=== PATIENT | male | born 1940 | race Caucasian/White ===

== ENCOUNTER 2022-11-19 07:09 | Outpatient (CLI) | payer OTHER, SELFPAY ==
--- NOTE | 2022-11-19 | US_ITS ---
WS: [id number] RENAL ULTRASOUND HISTORY: CKD STAGE 3 COMPARISON: None available. TECHNIQUE: 2-D and color Doppler imaging of the kidney submitted. Right kidney: 9.1 cm x 3.5 cm x 5.5 cm. Cortex: 1.0 cm Low normal size kidney. There is mild diffuse cortical thinning with increased echogenicity throughou t the kidney. No mass or obstruction. Left kidney: 9.4 cm x 4.4 cm x 4.5 cm. Cortex: 1.0 cm Low normal size kidney with increased echogenicity. Mild diffuse cortical thinning. No obstruction or solid mass. Aorta: Mild atherosclerosis. Urinary Bladder: Normal distention. IMPRESSION: 1. No renal obstruction or solid mass. 2. Low normal size kidneys with cortical thinning and changes of chronic medical renal disease.
== END 2022-11-19 07:10 | disposition home or self-care (01) ==
PROVIDERS: PCP Family Medicine; Visit Provider Internal Medicine
DX: N18.32 Chronic kidney disease, stage 3b (principal)
CPT/HCPCS: 76770

== ENCOUNTER 2023-01-04 12:52 | Observation (INO) | payer OTHER, SELFPAY ==
[2023-01-04] VITALS (11 sets, daily range): BP systolic 113–132; BP diastolic 58–76; PULSE 85–127; RESP 15–29; TEMP 36.2–36.7; O2SAT 95–100; BMI 24.4
--- NOTE | 2023-01-04 13:12 | XR_ITS ---
WS: [id number] EXAMINATION: XR chest 1V portable [id number] REASON FOR EXAM: dyspnea/cough COMPARISON: None available. ORDER DATE: 01/04/2023 1:21 PM TECHNIQUE: A single, portable frontal chest x-ray was obtained. There is peripheral consolidative infiltrates with possibly some loculated effusion opacifying the ri ght lung base. Cannot rule out the possibility of a 10 mm nodule located immediately cephalad to the consolidation. Cardiomediastinal silhouette unremarkable except for atherosclerotic aortic change. No evidence for pulmonary edema. Soft tissue and osseous structures are unremarkable. No tubes or lines are present. IMPRESSION: Right basal consolidation possibly loculated effusion Possible 10 mm nodule above the consolidation, recommend close interval follow-up and if the nodule p ersists after the infiltrate is resolving recommend CT imaging of the chest
--- NOTE | 2023-01-04 13:12 | ECG_ITS ---
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 Measurements Intervals [place] Rate: 108 P: 0 UT: 0 QRS: -37 QRSD: 111 T: 114 QT: 343 QTc: 460 Interpretive Statements ATRIAL FIBRILLATION WITH RAPID VENTRICULAR RESPONSE LEFT AXIS DEVIATION [QRS AXIS < -30] INCOMPLETE RIGHT BUNDLE BRANCH BLOCK [90+ ms QRS DURATION, TERMINAL R IN V1/V2, 40+ ms S IN I/aVL/V4/V5/V6] SEPTAL MYOCARDIAL INFARCTION , PROBABLY OLD [40+ ms Q WAVE IN V1/V2] No previous ECG available for comparison Electronically Signed On 01-04-2023 15:10:09 CDT by Gume Viera M.D. [id number]
--- NOTE | 2023-01-04 13:17 | W.ED.WEAKNES ---
HPI - Weakness General: Chief complaint: Weakness Stated complaint: WEAKNESS Time Seen by Provider: 01/04/23 13:11 Source: patient Mode of arrival: ambulatory History of Present Illness: 82-year-old Time performed and obtained. Male presents to the emergency room with weakness for the last 3 weeks progressively worse this week. He patient presents in A-fib when I asked him and his family they had not no knowledge of what atrial fibrillation was has not previously been diagnosed with atrial fibrillation he is not on any anticoagulations. He has been short of breath. No fevers sweats or chills. He is not taking any medications for rate control. No chest pain. MD Complaint: generalized weakness Onset (ago): week(s) Duration: constant and progressively worsening Severity: moderate Relieving factors: none Exacerbating factors: none Associated symptoms: Denies chest pain, chills, confusion, melena, decreased appetite, diaphoresis, dysuria, easy bruising, fever(s), headache(s), myalgias, nausea, rash, short of breath, syncope or vomiting Review of Systems Const: Denies: fever(s), chills or diaphoresis ENMT: Denies: throat pain, ear or mastoid pain, nasal discharge or nasal congestion Card: Reports: palpitations and irregular heart rhythm; Denies: chest pain, edema, lightheadedness or syncope Resp: Denies: dyspnea, productive cough or non-productive cough GI: Denies: abdominal pain, nausea, vomiting or melena : Denies: dysuria, urinary frequency or urinary urgency Skin/Breast: Denies: rash or pruritus Neuro: Denies: headache(s) or confusion Willi/Lymph: Denies: easy bruising Physical Exam Const: GENERAL APPEARANCE: cooperative and comfortable ORIENTATION/CONSCIOUSNESS: Yes awake, Yes oriented to person, Yes oriented to place and Yes oriented to time HENMT: COMMON NORMALS: normocephalic, atraumatic and hearing grossly normal bilaterally HEAD & SCALP: normocephalic and atraumatic Resp: AUSCULTATION: crackles and diminished lung sounds (Right base) Cardio: RHYTHM: abnormal rhythm irregularly irregular GI: COMMON NORMALS: Soft to palpation and No hepatosplenomegaly present AUSCULTATION: Yes normoactive bowel sounds PALPATION: Yes Soft to palpation, No Tenderness to palpation present (GI), No Guarding due to palpation present (GI) and Yes No hepatosplenomegaly present Extremity: COMMON NORMALS: normal to inspection, capillary refill normal, no clubbing, cyanosis or edema, no calf tenderness and no pedal edema Neuro: SENSORIUM/ORIENTATION: Yes oriented to person, Yes oriented to place and Yes oriented to time Skin: COMMON NORMALS: no rashes or lesions noted GENERAL SKIN EXAM: no rashes or lesions noted Course Vital Signs: Vital signs: Vital Signs Temperature 97.8 F 01/04/23 12:54 Pulse Rate 95 01/04/23 15:43 Respiratory Rate 16 01/04/23 15:43 Blood Pressure 129/76 01/04/23 15:43 Pulse Oximetry 98 01/04/23 15:43 Oxygen Delivery Me thod Room Air 01/04/23 15:43 MDM - Weakness Medical Decision Making Atrial fibrillation with a large right pleural effusion White count is normal concerning because of his loculation length of time he is on it that this may be secondary to neoplasm is no sign of PE. Discussed Dr. Noble we are not starting antibiotics at this point did not believe is infectious for evaluation for the pleural effusion and establishing rate control. We will HAVE to work through something as far as anticoagulation goes. Medical Records I reviewed the patient's medical records. Lab Data I reviewed the patient's lab results. 01/04/23 13:28 01/04/23 13:28 Laboratory Results WBC 3.62 10^3/uL (3.29-11.43) 01/04/23 13:28 RBC 4.04 10^6/uL (3.85-5.65) 01/04/23 13:28 Hgb 10.00 g/dL (11.27-16.99) L 01/04/23 13:28 Hct 32.2 % (37-53) L 01/04/23 13:28 MCV 79.7 fl (82-101) L 01/04/23 13:28 MCH 24.8 pg (27-33) L 01/04/23 13:28 MCHC 31.1 g/dL (30-55) 01/04/23 13:28 RDW 16.3 % (12.1-15.1) H 01/04/23 13:28 Plt Count 444 10^3/cmm (157-399) H 01/04/23 13:28 MPV 8.9 fL (7.4-10.4) 01/04/23 13:28 Neut % (Auto) 42.6 % 01/04/23 13:28 Lymph % (Auto) 22.7 % 01/04/23 13:28 [place] % (Auto) 18.2 % 01/04/23 13:28 Eos % (Auto) 9.9 % 01/04/23 13:28 Baso % (Auto) 1.1 % 01/04/23 13:28 Neut # (Auto) 1.54 10^3/uL (1.8-7.7) L 01/04/23 13:28 Lymph # (Auto) 0.8 10^3/uL (0.8-4.8) 01/04/23 13:28 [place] # (Auto) 0.7 10^3/uL (0.2-0.9) 01/04/23 13:28 Eos # (Auto) 0.4 10^3/uL (0.0-0.8) 01/04/23 13:28 Baso # (Auto) 0.0 10^3/uL (0.0-0.1) 01/04/23 13:28 Nucleated RBC % (auto) 0 % 01/04/23 13:28 Nucleated RBCs # 0.0 /100WBC 01/04/23 13:28 Sodium 136 mmol/L (136-145) 01/04/23 13:28 Potassium 5.0 mmol/L (3.5-5.1) 01/04/23 13:28 Chloride 103 mmol/L (98-107) 01/04/23 13:28 Carbon Dioxide 25 mmol/L (22-29) 01/04/23 13:28 Anion Gap 13.0 (5-19) 01/04/23 13:28 BUN 19 mg/dL (8-23) 01/04/23 13:28 Creatinine 1.2 mg/dL (0.7-1.2) 01/04/23 13:28 GFR Calculation Not Reportable 01/04/23 13:28 Glucose 130 mg/dL (65-115) H 01/04/23 13:28 Calculated Osmolality 286 mOsm/kg (285-295) 01/04/23 13:28 Calcium 8.4 mg/dL (8.5-10.5) L 01/04/23 13:28 Total Bilirubin 0.7 mg/dL (0.15-1.2) 01/04/23 13:28 AST 23 U/L (0-40) 01/04/23 13:28 ALT 10 U/L (0-41) 01/04/23 13:28 Alkaline Phosphatase 60 U/L (40-130) 01/04/23 13:28 Total Protein 6.9 g/dL (6.6-8.7) 01/04/23 13:28 Albumin 2.8 g/dL (3.5-5.2) L 01/04/23 13:28 Globulin 4.1 g/dL (1.3-4.6) 01/04/23 13:28 Urine Color Dark yellow (Yellow) 01/04/23 14:30 Urine Appearance Clear (CLEAR) 01/04/23 14:30 Urine pH 5 (5-7) 01/04/23 14:30 Ur Specific [place] 1.020 (1.005-1.030) 01/04/23 14:30 Urine Protein 1+ (Negative) H 01/04/23 14:30 Urine Glucose (UA) Norm (Normal) 01/04/23 14:30 Urine Ketones Negative (Negative) 01/04/23 14:30 Urine Blood Neg (Negative) 01/04/23 14:30 Urine Nitrate Negative (Negative) 01/04/23 14:30 Urine Bilirubin 1+ (Negative) H 01/04/23 14:30 Urine Urobilinogen 4 mg/dL (Negative) H 01/04/23 14:30 Ur Leukocyte Esterase Negative (Negative) 01/04/23 14:30 Urine RBC 0-4 /hpf (0-2) H 01/04/23 14:30 Urine WBC 0-4 /hpf (0-5) H 01/04/23 14:30 Ur Squamous Epith Cells 0-4 /hpf (0-5) H 01/04/23 14:30 Amorphous Sediment Not Reportable 01/04/23 14:30 Urine Bacteria 2+ /hpf (NONE) H 01/04/23 14:30 Urine Mucus Trace /hpf 01/04/23 14:30 All radiology interpretation(s) finalized by discharge Discharge Plan Discharge Patient Disposition: Placed in Observation Clinical Impression: Atrial fibrillation, new onset, Pleural effusion on right Coding Level of Care Code ED Copper Plate Lithographer for Megha Shah
[2023-01-04 13:39] LABS: Basophils % 1.1 %; Eosinophils # 0.4 10^3/uL (0.0-0.8); Eosinophils % 9.9 %; Hematocrit 32.2 % (37-53); Lymphocytes # 0.8 10^3/uL (0.8-4.8); Lymphocytes % 22.7 %; Mean Corpuscular HGB Conc 31.1 g/dL (30-55); Mean Corpuscular Hemoglobin 24.8 pg (27-33); Mean Corpuscular Volume 79.7 fl (82-101); Mean Platelet Volume 8.9 fL (7.4-10.4); Monocytes # 0.7 10^3/uL (0.2-0.9); Monocytes % 18.2 %; Neutrophils # 1.54 10^3/uL (1.8-7.7); Neutrophils % 42.6 %; Nucleated Red Blood Cells % 0 %; Platelet Count 444 10^3/cmm (157-399); Red Blood Count 4.04 10^6/uL (3.85-5.65); Red Cell Distribution Width 16.3 % (12.1-15.1); White Blood Count 3.62 10^3/uL (3.29-11.43)
--- NOTE | 2023-01-04 13:47 | PC.PHAR ---
pt states he lives alone and doesnt take any rx medications-pt states the fl sends him no medications-pt states he takes otc vitamins but is unsure of the names of the vitamins-pt states he takes a 81mg aspirin prn when he has pains
[2023-01-04 13:56] LABS: Alanine Aminotransferase 10 U/L (0-41); Albumin Level 2.8 g/dL (3.5-5.2); Alkaline Phosphatase 60 U/L (40-130); Aspartate Amino Transferase 23 U/L (0-40); Blood Urea Nitrogen 19 mg/dL (8-23); Calcium 8.4 mg/dL (8.5-10.5); Carbon Dioxide 25 mmol/L (22-29); Chloride 103 mmol/L (98-107); Globulin 4.1 g/dL (1.3-4.6); Glucose 130 mg/dL (65-115); Osmolality Calculated 286 mOsm/kg (285-295); Sodium 136 mmol/L (136-145); Total Bilirubin 0.7 mg/dL (0.15-1.2); Total Protein 6.9 g/dL (6.6-8.7)
[2023-01-04 14:17] LABS: Slide Review Slide Review Perform
--- NOTE | 2023-01-04 14:55 | CT_ITS ---
WS: [id number] CTA OF THE CHEST WITH PULMONARY EMBOLISM PROTOCOL TECHNIQUE: High-resolution contrast enhanced CTA of the chest with coronal and sagittal reformatted i carlos with pulmonary embolism protocol. MIP images are also reviewed. CLINICAL INFORMATION: tachy cardia/dyspnea, R pleurel efusion COMPARISON: None. DLP: 320.[address] scans at [facility] use at least one of these dose optimization techniques: automated e xposure control; mA and/or kV adjustment per patient size (includes targeted exams where dose is matc hed to clinical indication); or iterative reconstruction. FINDINGS: Proximal main pulmonary arteries are normal. Normal segmental and subsegmental pulmonary arteries. No evidence of pulmonary embolus. Bronchovascular thickening along the RIGHT hilum with traction bronchiectasis. Parenchymal scarring i n the RIGHT lower lobe. and/or soft tissue thickening Diffuse loculated pleural fluid throughout the RIGHT lung worse in the RIGHT lower lobe with compressive atelectasis. This extends along the RIGHT upper lobe and mediastinal surfaces. Subsegmental atelectasis RIGHT lower lobe. Traction bronchiectas is RIGHT hilum. Differential considerations include infectious, inflammatory, or neoplastic etiologie s including pleural metastasis, mesothelioma, and lymphoma. LEFT lung is well aerated. Parenchymal scarring LEFT lung apex. No LEFT pleural fluid. Cholecystectomy clips. Adrenal glands are normal. Normal GE junction. Aneurysmal ascending thoracic a veronica measuring 4.6 cm. Normal caliber descending thoracic aorta. Elevation RIGHT hemidiaphragm with v olume loss RIGHT lung. Small amount of perihepatic fluid. Chronic anterior wedging in the midthoracic spine with endplate Schmorl's nodes. IMPRESSION: 1. Diffuse loculated pleural fluid and/or soft tissue thickening involving the RIGHT pleura more pro minent in the RIGHT lower lobe, RIGHT upper lobe laterally and extending along the mediastinal surfac es. Pleural Parenchymal scarring in the RIGHT lower lobe with traction bronchiectasis along the RIGH T hilum. 2. Differential considerations are broad including infectious, inflammatory, or neoplastic etiologie s including pleural metastasis, mesothelioma, and lymphoma. 3. LEFT lung is well aerated. 4. Aneurysmal ascending thoracic aorta measuring 4.6 cm. 5. No evidence of pulmonary embolus.
[2023-01-04 15:08] LABS: Urine Appearance Clear (CLEAR); Urine Color Dark Yellow (Yellow)
[2023-01-04 15:09] LABS: Add Urine Culture? No; Add Urine Microscopic? YES; Bacteria Urine 2+ /hpf; Bilirubin Urine 1+ (Negative); Blood Urine Neg (Negative); Glucose Urine UA Norm (Normal); Ketones Urine Negative (Negative); Leukocyte Esterase Urine Negative (Negative); Mucus Urine TRACE /hpf; Nitrate Urine Negative (Negative); Protein Urine 1+ (Negative); RBC Urine 0-4 /hpf (0-2); Squamous Epithelial Cell Urine 0-4 /hpf (0-5); Urobilinogen Urine 4 mg/dL (Negative); WBC Urine 0-4 /hpf (0-5); pH Urine 5 (5-7)
--- NOTE | 2023-01-04 17:56 | PM.HP ---
Providers/Chief Complaint Admitting Physician: Hector Flanagan MD Primary Care Provider: Olu Rios Jr, MD Chief Complaint: WEAKNESS History of Present Illness Alexx Barron is a 82 year old male with no segment past medical, resident of assisted living was brought in by EMS today because of generalized weakness which has been getting worse for last 3 to 4 days along with persistent cough. In the ER he was found to have atrial fibrillation and right-sided pleural effusion hence medical team was consulted for further evaluation. Examination patient laying comfortably in bed, AO x1-2, slightly confused which as per his sister is usual for him, states he walks around at home with a walker and usually takes care of his ADLs but has been having more cough and weakness for last few days. He denies any chest pain, palpitation, nausea, vomiting, subjective fever fever, diarrhea, dysuria, loss of weight. Review of Systems General: Reports: 10 or more systems reviewed and unremarkable except in HPI and below Const: Denies: fever(s), chills, body aches, change in appetite, change in weight, malaise, night sweats, diaphoresis, change in sleep pattern, daytime sleepiness or snoring Eyes: Denies: change in vision, blurry vision, photophobia, eye discomfort or eye discharge ENMT: Denies: throat pain, enlarged tonsils, hoarseness, mouth pain, oral sores, dry mouth, tinnitus, nasal congestion or post nasal drip Card: Denies: chest pain, palpitations, irregular heart rhythm, edema, swelling of feet/ankles, lightheadedness, syncope, pre-syncope, dyspnea on exertion, orthopnea, leg pain with exertion or acrocyanosis Resp: Denies: dyspnea, productive cough, non-productive cough, wheezing, stridor, pain on inspiration, change in phlegm color, hemoptysis or chest congestion GI: Denies: abdominal pain, nausea, vomiting, hematemesis, coffee ground emesis, dysphagia, heartburn, diarrhea, constipation, bloating, GI cramping, change in bowel habits, pain on defecation, hematochezia or melena : Denies: flank pain, difficulty urinating, dysuria, urinary frequency, urinary urgency, urinary hesitancy, urinary dribbling, difficulty starting urination, change in urine stream, nocturia or hematuria Musc: Denies: neck pain, back pain, extremity pain, joint pain, joint swelling, joint redness, joint stiffness or limited range of motion Neuro: Denies: headache(s), numbness in extremities, weakness in extremities, sensory changes, lack of coordination, difficulty walking, frequent falls, dizziness, vertigo, confusion, Slurred speech present, difficulty communicating thoughts or seizure-like activity Psych: Denies: anxiety, depression, mood swings, panic attacks, hopelessness or irritability Endo: Denies: polyuria, polydipsia, tired all the time, cold intolerance, excessive sweating, flushing or heat intolerance Willi/Lymph: Denies: easy bruising or easy bleeding All/Imm: Denies: tongue swelling, facial swelling or acute wheezing Medications/Allergies Home Medications Medication Instructions Recorded Confirmed Last Taken Type Otc Vits (Pt Not Sure Of Names See Rx Instructions .Route .COMPLEX 01/04/23 01/04/23 Unknown History aspirin 81 mg tablet,delayed 81 mg PO DAILY PRN chest pains 01/04/23 01/04/23 3 Days Ago History release ~01/01/23 Allergies Allergy/AdvReac Type Severity Reaction Status Date / Time No Known Allergies Allergy Verified 01/04/23 13:44 PFSH Acute PFSH: Medical History (Updated 01/04/23 @ 18:08 by Hector Flanagan MD) No pertinent past medical history Surgical History (Updated 01/04/23 @ 18:08 by Hector Flanagan MD) No pertinent past surgical history Social History (Updated 01/04/23 @ 18:09 by Hector Flanagan MD) Smoking and tobacco status: former smoker Alcohol intake: never Substance/Drug Use: never Caregiver/support person: Yes Housing: Assisted Living Facility Marital status: Current occupational status: retired Vitals/I&O/Wt Last Vital Signs Temp 97.8 F 01/04/23 12:54 Pulse 104 H 01/04/23 17:44 Resp 15 01/04/23 17:44 BP 126/74 01/04/23 17:44 Pulse Ox 100 01/04/23 17:44 O2 Del Method Room Air 01/04/23 17:44 Weight last 48 hrs Weight 81.647 kg Physical Exam Narrative: General: No acute distress, AO x1-2, confusion, dehydrated, frail appearing HEENT: PERRLA, pupils bilaterally equal and reactive Chest: Normal vesicular breath sounds, no added sounds, equal good air entry bilaterally CVS: S1-S2 ir, no murmurs, no tachycardia, no gallops, no rubs Abdomen: Soft, nontender, no organomegaly, bowel sounds present Neuro: No focal deficits, no facial deformity, power 5/5 in all limbs Data 01/04/23 13:28 01/04/23 13:28 Other Labs: Laboratory Results WBC 3.62 10^3/uL (3.29-11.43) 01/04/23 13: RBC 4.04 10^6/uL (3.85-5.65) 01/04/23 13:28 Hgb 10.00 g/dL (11.27-16.99) L 01/04/23 13:28 Hct 32.2 % (37-53) L 01/04/23 13:28 MCV 79.7 fl (82-101) L 01/04/23 13:28 MCH 24.8 pg (27-33) L 01/04/23 13:28 MCHC 31.1 g/dL (30-55) 01/04/23 13:28 RDW 16.3 % (12.1-15.1) H 01/04/23 13:28 Plt Count 444 10^3/cmm (157-399) H 01/04/23 13:28 MPV 8.9 fL (7.4-10.4) 01/04/23 13:28 Neut % (Auto) 42.6 % 01/04/23 13:28 Lymph % (Auto) 22.7 % 01/04/23 13:28 [place] % (Auto) 18.2 % 01/04/23 13:28 Eos % (Auto) 9.9 % 01/04/23 13:28 Baso % (Auto) 1.1 % 01/04/23 13:28 Neut # (Auto) 1.54 10^3/uL (1.8-7.7) L 01/04/23 13:28 Lymph # (Auto) 0.8 10^3/uL (0.8-4.8) 01/04/23 13:28 [place] # (Auto) 0.7 10^3/uL (0.2-0.9) 01/04/23 13:28 Eos # (Auto) 0.4 10^3/uL (0.0-0.8) 01/04/23 13:28 Baso # (Auto) 0.0 10^3/uL (0.0-0.1) 01/04/23 13:28 Nucleated RBC % (auto) 0 % 01/04/23 13:28 Nucleated RBCs # 0.0 /100WBC 01/04/23 13:28 Sodium 136 mmol/L (136-145) 01/04/23 13:28 Potassium 5.0 mmol/L (3.5-5.1) 01/04/23 13:28 Chloride 103 mmol/L (98-107) 01/04/23 13:28 Carbon Dioxide 25 mmol/L (22-29) 01/04/23 13:28 Anion Gap 13.0 (5-19) 01/04/23 13:28 BUN 19 mg/dL (8-23) 01/04/23 13:28 Creatinine 1.2 mg/dL (0.7-1.2) 01/04/23 13:28 GFR Calculation Not Reportable 01/04/23 13:28 Glucose 130 mg/dL (65-115) H 01/04/23 13:28 Calculated Osmolality 286 mOsm/kg (285-295) 01/04/23 13:28 Calcium 8.4 mg/dL (8.5-10.5) L 01/04/23 13:28 Total Bilirubin 0.7 mg/dL (0.15-1.2) 01/04/23 13:28 AST 23 U/L (0-40) 01/04/23 13:28 ALT 10 U/L (0-41) 01/04/23 13:28 Alkaline Phosphatase 60 U/L (40-130) 01/04/23 13:28 Total Protein 6.9 g/dL (6.6-8.7) 01/04/23 13:28 Albumin 2.8 g/dL (3.5-5.2) L 01/04/23 13:28 Globulin 4.1 g/dL (1.3-4.6) 01/04/23 13:28 Urine Color Dark yellow (Yellow) 01/04/23 14:30 Urine Appearance Clear (CLEAR) 01/04/23 14:30 Urine pH 5 (5-7) 01/04/23 14:30 Ur Specific [place] 1.020 (1.005-1.030) 01/04/23 14:30 Urine Protein 1+ (Negative) H 01/04/23 14:30 Urine Glucose (UA) Norm (Normal) 01/04/23 14:30 Urine Ketones Negative (Negative) 01/04/23 14:30 Urine Blood Neg (Negative) 01/04/23 14: Urine Nitrate Negative (Negative) 01/04/23 14:30 Urine Bilirubin 1+ (Negative) H 01/04/23 14:30 Urine Urobilinogen 4 mg/dL (Negative) H 01/04/23 14:30 Ur Leukocyte Esterase Negative (Negative) 01/04/23 14:30 Urine RBC 0-4 /hpf (0-2) H 01/04/23 14:30 Urine WBC 0-4 /hpf (0-5) H 01/04/23 14:30 Ur Squamous Epith Cells 0-4 /hpf (0-5) H 01/04/23 14:30 Amorphous Sediment Not Reportable 01/04/23 14:30 Urine Bacteria 2+ /hpf (NONE) H 01/04/23 14:30 Urine Mucus Trace /hpf 01/04/23 14:30 Micro: Microbiology 01/04/23 13:49 Blood Culture - Preliminary Blood SPECIMEN COLLECTED 01/04/23 13:53 Blood Culture - Preliminary Blood SPECIMEN COLLECTED CTA Chest: Radiologist's impression: [facility] [address] [place] [address] CT Scan Report FINDINGS: Proximal main pulmonary arteries are normal. Normal segmental and subsegmental pulmonary arteries. No evidence of pulmonary embolus. Bronchovascular thickening along the RIGHT hilum with traction bronchiectasis. Parenchymal scarring in the RIGHT lower lobe.? and/or soft tissue thickening Diffuse loculated pleural fluid throughout the RIGHT lung worse in the RIGHT lower lobe with compressive atelectasis. This extends along the RIGHT upper lobe and mediastinal surfaces. Subsegmental atelectasis RIGHT lower lobe. Traction bronchiectasis RIGHT hilum. Differential considerations include infectious, inflammatory, or neoplastic etiologies including pleural metastasis, mesothelioma, and lymphoma. LEFT lung is well aerated. Parenchymal scarring LEFT lung apex. No LEFT pleural fluid. Cholecystectomy clips. Adrenal glands are normal. Normal GE junction. Aneurysmal ascending thoracic aorta measuring 4.6 cm. Normal caliber descending thoracic aorta. Elevation RIGHT hemidiaphragm with volume loss RIGHT lung. Small amount of perihepatic fluid. Chronic anterior wedging in the midthoracic spine with endplate Schmorl's nodes. IMPRESSION: 1.? Diffuse loculated pleural fluid and/or soft tissue thickening involving the RIGHT pleura more prominent in the RIGHT lower lobe, RIGHT upper lobe laterally and extending along the mediastinal surfaces. Pleural? Parenchymal scarring in the RIGHT lower lobe with traction bronchiectasis along the RIGHT hilum. 2.? Differential considerations are broad including infectious, inflammatory, or neoplastic etiologies including pleural metastasis, mesothelioma, and lymphoma. 3.? LEFT lung is well aerated. 4.? Aneurysmal ascending thoracic aorta measuring 4.6 cm. 5.? No evidence of pulmonary embolus. Dictated By: Farzad Almaguer MD A&P Assessment and plan (1) Atrial fibrillation, new onset: New onset. Check urine drug screen, TSH. Target heart rate less than 100. Start on Cardizem 30 mg every 6 hourly. We will discuss further with patient and patient's DPOA regarding anticoagulation for stroke prevention. Patient seems fragile for now we will hold off on anticoagulation continue with daily aspirin. Hold off on full dose anticoagulation for now as possible need of thoracentesis within next 24 hours. (2) Pleural effusion on right: Unknown etiology. Complaining of shortness of breath on and off on exertion. Currently on room air. Plan for thoracentesis further evaluation. Plan Shortness of breath: Most likely in setting of baseline undiagnosed COPD. Cannot rule out in setting of right-sided pleural effusion. Start on ipratropium, Xopenex every 6 hourly. Treatment of pleural effusion as above. Oxygen supplementation keeping saturation over 88%. Check A1c, lipid panel, vitamin B12, folate level, TSH, urine drug screen, sputum culture if possible, respiratory viral panel. Admit to CSU. Full code Cardiac diet Famotidine for PUD prophylaxis SCDs for DVT prophylaxis. Attestations Medical Necessity Statement*: Admission under observation for further management of new onset A-fib, right-sided pleural effusion Diagnoses Atrial fibrillation, new onset I48.91 Pleural effusion on right J90
--- NOTE | 2023-01-04 18:06 | USCV_ITS ---
Alexx Barron Age: 82 Gender: M : 1940 Exam Date: 01/04/2023 19:35 Ordering Phys: Hector Flanagan MD Technologist: YOLIE Exam Location: [facility] [place] Indication: Atrial fibrillation BP: 126 / 74 HR: 85 Rhythm: Atrial fibrillation Technical Quality: Adequate MEASUREMENTS (Male / Female) Normal Values 2D ECHO LV Diastolic Diameter PLAX 4.6 cm 4.2 - 5.9 / 3.9 - 5.3 cm LV Systolic Diameter PLAX 2.9 cm IVS Diastolic Thickness 1.2 cm 0.6 - 1.0 / 0.6 - 0.9 cm IVS Systolic Thickness 1.7 cm LVPW Diastolic Thickness 1.3 cm 0.6 - 1.0 / 0.6 - 0.9 cm LVPW Systolic Thickness 1.7 cm LVOT Diameter 2.1 cm LV Ejection Fraction 2D Teich 66.8 % LV Ejection Fraction MOD 2C 66.2 % LV Ejection Fraction 2C AL 65.8 % LA Diameter 1.9 cm LA Width 2.8 cm LA Height 4.0 cm RA Width 3.0 cm RA Height 4.3 cm Aorta at Sinotubular Diameter 3.9 cm IVC Diameter 1.5 cm M-MODE Aortic Annulus Diameter 3.8 cm LA Ao Ratio MM 0.5 MV E Point Septal Separation 0.4 cm DOPPLER AV Peak Velocity 109.0 cm/s LVOT Peak Velocity 99.0 cm/s AV Area Cont Eq vti 3.4 cm squared AV Area Cont Eq pk 3.2 cm squared MV Peak Velocity 152.0 cm/s MV Area PHT 5.0 cm squared MV E' Velocity 62.0 cm/s Mitral E to MV E' Ratio 14.5 Mitral E to LV E' Lateral Ratio 14.2 Mitral E to LV E' Septal Ratio 14.9 TR Peak Velocity 217.0 cm/s TR Peak Gradient 18.8 mmHg TV Peak E Velocity 67.0 cm/s Right Atrial Pressure 5.0 mmHg Pulmonary Artery Systolic Pressu 23.8 mmHg PV Peak Velocity 88.0 cm/s RV Acceleration Time 0.1 s RV Ejection Time 0.2 s RV AcT/ET 0.3 FINDINGS Left Ventricle Normal left ventricular size, systolic function and wall thickness, with no regional wall motion abnormalities. Left ventricular ejection fraction is estimated at 55 %. Rhythm precludes evaluation of diastolic function. Abnormal septal motion consistent with conduction abnormality. Right Ventricle Normal right ventricular size and systolic function. Right ventricular systolic pressure 23.8 mmHg. Right Atrium Normal right atrial size. Left Atrium Upper normal left atrial size. Mitral Valve Mild mitral annular calcification. Mildly thickened mitral valve. No mitral valve stenosis. Trace mitral valve regurgitation. Aortic Valve Thickened trileaflet aortic valve. No aortic valve stenosis. Mild to moderate aortic valve regurgitation. Tricuspid Valve Structurally normal tricuspid valve. No tricuspid valve stenosis. Trace tricuspid valve regurgitation. Pulmonic Valve Pulmonic valve not well visualized. Pericardium No pericardial effusion. Left pleural effusion. Aorta Dilated aortic root measured at 41 mm and ascending aorta measured at 48 mm anterioposteriorly. IVC Normal IVC dimension with >50% respiratory change of the inferior vena cava. CONCLUSIONS 1. Normal left ventricular size, systolic function and wall thickness, with no regional wall motion abnormalities. Left ventricular ejection fraction is estimated at 55 %. 2. Mild to moderate aortic valve regurgitation. 3. Dilated aortic root measured at 41 mm and ascending aorta measured at 48 mm anterioposteriorly. 4. No Prior similar studies to compare Deedee Peters MD (Electronically Signed) Final Date: 05 January 2023 10:50 S
[2023-01-04 18:28] LABS: Amphetamines Screen Urine Negative (Negative); Barbiturates Screen Urine Negative (Negative); Benzodiazepines Screen Urine Negative (Negative); Cocaine Screen Urine Negative (Negative); Opiate Screen Urine Negative (Negative); PCP Screen Urine Negative (Negative); THC Screen Urine Negative (Negative)
[2023-01-04 18:51] LABS: Procalcitonin 0.23 ng/mL (0-0.5)
[2023-01-04] MEDS: levalbuterol 0.63 mg/3 mL Neb INHALATION (19:16)
[2023-01-04] MEDS: ipratropium 0.5 mg/2.5 mL Neb INHALATION (19:16)
[2023-01-04] MEDS: dilTIAZem 30 mg Tablet PO ×2 (19:22→23:34)
[2023-01-04] MEDS: sodium chloride 0.9% 1,000 ML 50 ML IV (19:23)
[2023-01-04 19:54] LABS: Iron 21 ug/dL (59-158); Total Iron Binding Capacity 149 mcg/dl; Unsaturated Iron Binding 128 ug/dL (112-347)
[2023-01-04 20:40] LABS: Vitamin B12 > 2000 pg/mL (232-1245)
[2023-01-04 20:59] LABS: Adenovirus Not Detected (NOT DETECT); Chlamydia Pneumoniae Not Detected (NOT DETECT); Coronavirus 229E,HKU1,NL63,OC4 Not Detected (NOT DETECT); Human Metapneumovirus Not Detected (NOT DETECT); Human Rhinovirus/Enterovirus Detected (NOT DETECT); Influenza A Not Detected (NOT DETECT); Influenza A H1 Not Detected (NOT DETECT); Influenza A H1-2009 Not Detected (NOT DETECT); Influenza A H3 Not Detected (NOT DETECT); Influenza B Not Detected (NOT DETECT); Mycoplasma Pneumoniae Not Detected (NOT DETECT); Parainfluenza Virus Type 1 Not Detected (NOT DETECT); Parainfluenza Virus Type 2 Not Detected (NOT DETECT); Parainfluenza Virus Type 3 Not Detected (NOT DETECT); Parainfluenza Virus Type 4 Not Detected (NOT DETECT); Respiratory Syncytial Virus A Not Detected (NOT DETECT); Respiratory Syncytial Virus B Not Detected (NOT DETECT); SARS-COV-2 Not Detected (NOT DETECT)
[2023-01-05] VITALS (15 sets, daily range): BP systolic 112–134; BP diastolic 50–63; PULSE 80–118; RESP 16–28; TEMP 36.6–36.9; O2SAT 92–100
[2023-01-05 01:02] LABS: Add Urine Microscopic? YES; Bilirubin Urine 1+ (Negative); Blood Urine Neg (Negative); Glucose Urine UA Norm (Normal); Ketones Urine Negative (Negative); Leukocyte Esterase Urine Negative (Negative); Nitrate Urine Negative (Negative); Protein Urine 1+ (Negative); Specific Gravity, Urine 1.015 (1.005-1.030); Urine Appearance SL Hazy (CLEAR); Urine Color Yellow (Yellow); Urobilinogen Urine 1 mg/dL (Negative); pH Urine 5 (5-7)
[2023-01-05 01:03] LABS: Add Urine Culture? No; Bacteria Urine TRACE /hpf; Mucus Urine 2+ /hpf
[2023-01-05] MEDS: ipratropium 0.5 mg/2.5 mL Neb INHALATION ×4 (02:59→20:00)
[2023-01-05] MEDS: levalbuterol 0.63 mg/3 mL Neb INHALATION ×3 (02:59→20:02)
[2023-01-05 05:19] LABS: Estmated Average Glucose 97
[2023-01-05 05:29] LABS: Chol HDL Ratio 2.56 mg/dL (1.0-5.00); Cholesterol 92 mg/dL (0-200); HDL Cholesterol 36 mg/dL (60-100); LDL Cholesterol Calculated 46 mg/dL (50-129); LDL HDL Ratio 1.28 RATIO (0.00-3.22); Triglycerides 50 mg/dL (0-150)
[2023-01-05 05:30] LABS: Alanine Aminotransferase 8 U/L (0-41); Albumin Level 2.6 g/dL (3.5-5.2); Alkaline Phosphatase 59 U/L (40-130); Anion Gap 13.6 (5-19); Aspartate Amino Transferase 21 U/L (0-40); Basophils % 1.1 %; Blood Urea Nitrogen 15 mg/dL (8-23); Calcium 8.4 mg/dL (8.5-10.5); Carbon Dioxide 23 mmol/L (22-29); Chloride 104 mmol/L (98-107); Eosinophils # 0.4 10^3/uL (0.0-0.8); Eosinophils % 12.7 %; Globulin 3.9 g/dL (1.3-4.6); Glucose 99 mg/dL (65-115); Hematocrit 30.3 % (37-53); Lymphocytes # 1.2 10^3/uL (0.8-4.8); Lymphocytes % 44.4 %; Mean Corpuscular HGB Conc 30.7 g/dL (30-55); Mean Corpuscular Volume 81.5 fl (82-101); Mean Platelet Volume 9.2 fL (7.4-10.4); Monocytes # 0.5 10^3/uL (0.2-0.9); Monocytes % 18.2 %; Neutrophils % 18.9 %; Nucleated Red Blood Cells % 0 %; Osmolality Calculated 283 mOsm/kg (285-295); Phosphorus 3.4 mg/dL (2.5-4.5); Platelet Count 286 10^3/cmm (157-399); Potassium 4.6 mmol/L (3.5-5.1); Red Blood Count 3.72 10^6/uL (3.85-5.65); Red Cell Distribution Width 16.4 % (12.1-15.1); Sodium 136 mmol/L (136-145); Total Bilirubin 0.7 mg/dL (0.15-1.2); Total Protein 6.5 g/dL (6.6-8.7); White Blood Count 2.75 10^3/uL (3.29-11.43)
[2023-01-05] MEDS: dilTIAZem 30 mg Tablet PO ×3 (05:38→20:50)
[2023-01-05 06:15] LABS: Folate Level 5.4 ng/mL (4.5-32.2)
[2023-01-05 06:28] LABS: Neutrophils # 0.52 10^3/uL (1.8-7.7); Slide Review Slide Review Perform
[2023-01-05] MEDS: famotidine 20 mg Tablet PO ×2 (09:11→17:13)
[2023-01-05 09:23] LABS: INR 1.13 (0.8-1.2)
[2023-01-05] MEDS: budesonide 0.5 mg/2 mL Neb INHALATION ×2 (09:40→20:00)
--- NOTE | 2023-01-05 10:33 | XR_ITS ---
WS: [id number] PORTABLE CHEST HISTORY: post thoracentesis, RIGHT COMPARISON: 01/04/2023 Status post RIGHT thoracentesis. No pneumothorax is identified. There is better aeration of the RIGHT lung. There is still a small residual RIGHT pleural effusion. Mild elevation of the RIGHT hemidiaphragm. LEFT lung is clear. Cardiac size: Normal. Mediastinum/Aorta: Mild atherosclerosis aorta. No osseous abnormality seen. IMPRESSION: 1. No pneumothorax status post RIGHT thoracentesis. 2. Moderate improvement in aeration of the RIGHT lung. Small residual pleural effusion versus atelect asis.
[2023-01-05 11:03] LABS: Body Fluid Polynuclear #Cells 0.939; Body Fluid WBC 5184 /uL; Monocytes # Body Fluid 4.245
[2023-01-05 11:07] LABS: Hematocrit Body Fluid 0.1 %
[2023-01-05 11:08] LABS: Apprearance, Body Fluid CLOUDY; Color, Body Fluid AMBER
[2023-01-05 11:23] LABS: Albumin Body Fluid 2.4 g/dL; Creatinine Body Fluid 1.03 (0.7-1.2); LDH Pleural Fluid 326 U/L; Total Protein Pleural Fluid 4.7 g/dL; Triglycerides, Pleural Fluid 24 mg/dL
[2023-01-05 11:35] LABS: Cyto Order Verification Order Verified
--- NOTE | 2023-01-05 12:06 | PM.PN ---
Subjective Subjective: No acute events overnight. Today morning on examination patient is a lot more awake and alert. Family at bedside. Denies any nausea, vomiting, headache, chest pains. Patient underwent thoracentesis today and 900 cc of pleural fluid was drained. Blood work today shows leukopenia, neutropenia with neutrophil down to 0.52, stable INR, stable CMP Vitals/I&O/Wt Last Vital Signs Temp 97.8 F 01/05/23 04:00 Pulse 90 01/05/23 09:46 Resp 16 01/05/23 09:40 BP 116/56 01/05/23 09:39 Pulse Ox 94 01/05/23 09:40 O2 Del Method Room Air 01/05/23 09:40 01/04/23 01/05/23 01/05/23 22:59 06:59 14:59 Intake Total 480 / 480 Output Total 650 / 650 125 / 125 Balance 480 / 480 -650 / -170 -125 / -125 Weight last 48 hrs Weight 81.647 kg Physical Exam Narrative: General: No acute distress, AO x1-2, confusion, dehydrated, frail appearing HEENT: PERRLA, pupils bilaterally equal and reactive Chest: Normal vesicular breath sounds, no added sounds, equal good air entry bilaterally CVS: S1-S2 ir, no murmurs, no tachycardia, no gallops, no rubs Abdomen: Soft, nontender, no organomegaly, bowel sounds present Neuro: No focal deficits, no facial deformity, power 5/5 in all limbs Urinary Catheter Management: Shelton: Cath Placed During This Visit: yes, but has since been removed by the nurse Reason for Continuing Indwelling Catheter: Other Urinary Catheter Date of Insertion: 01/05/23 Urinary Catheter Time of Insertion: 00:31 Date Urinary Catheter Removed: 01/05/23 Time Urinary Catheter Discontinued: 09:30 Data 01/05/23 04:46 01/05/23 04:46 Micro: Microbiology 01/04/23 13:49 Blood Culture - Preliminary Blood SPECIMEN COLLECTED 01/04/23 13:53 Blood Culture - Preliminary Blood SPECIMEN COLLECTED A&P Assessment and plan (1) Atrial fibrillation, new onset: New onset. Appreciate normal urine drug screen, TSH. Continue with Cardizem 30 mg every 8 hourly. Discussed with patient and DPOA regarding anticoagulation need for stroke prevention. He states he is not usually at a risk of fall and uses a walker very regularly and is agreeable for anticoagulation. We will start on Eliquis 5 mg twice daily postthoracentesis. (2) Pleural effusion on right: Unknown etiology. 900 cc of fluid aspirated. Will await studies. (3) Rhinovirus infection: Most likely cause of patient's acute generalized weakness. Supportive treatment. Ipratropium, Xopenex every 6 hours, Pulmicort twice daily. Incentive spirometry. (4) Leukopenia: Most likely in setting of acute viral infection. Continue to monitor. No need for prophylactic antibiotics for now. (5) Neutropenia: Neutropenic precautions. Plan Shortness of breath: Most likely in setting of baseline undiagnosed COPD getting exacerbated by rhinovirus infection. Cannot rule out in setting of right-sided pleural effusion. Treatment as above.. Discharge plan: Patient's family states he would be better with a short-term SNF placement for rehabitation when he gets stronger. Patient is agreeable. Case management alerted. Plan to discharge [facility] Full code Cardiac diet Famotidine for PUD prophylaxis SCDs for DVT prophylaxis. Attestations Medical Necessity Statement*: Requires further hospitalization for management of shortness of breath secondary to COPD exacerbation in setting of rhinovirus infection, new onset A-fib while safe discharge planning is sought. Diagnoses Atrial fibrillation, new onset I48.91 Pleural effusion on right J90 Rhinovirus infection B34.8 Leukopenia D72.819 Neutropenia D70.9
[2023-01-05 12:10] LABS: Fluid Laterality RIGHT
[2023-01-05 12:38] LABS: Lactate Dehydrogenase 165 U/L (135-225)
--- NOTE | 2023-01-05 13:39 | PC.NURSE ---
Respiratory in room at this time completing treatment.
--- NOTE | 2023-01-05 13:46 | PC.NURSE ---
Patient transfer Patient transferred to [facility]- at this time, tolerated well. Patient oriented to room. Call button checked and placed within reach. Patient stated no pain at this time. No further needs requested.
--- NOTE | 2023-01-05 19:04 | US_ITS ---
WS: [id number] ULTRASOUND-GUIDED THORACENTESIS, RIGHT HISTORY: right pleural effusion Procedure, risks, and complications were explained to the patient. With the patient in an upright pos ition, the skin over the RIGHT posterior thorax was cleansed with ChloraPrep and anesthetized with 1% buffered lidocaine. A 5 Serbian Yueh needle is inserted into the pleural fluid without complication. Approximately 1000 cc of moderate red-tinged pleural fluid is removed without difficulty. Specimen collected for analysis as requested. IMPRESSION: 1. RIGHT thoracentesis yielding 1000 cc of fluid. 2. Chest radiograph to follow to evaluate for pneumothorax.
[2023-01-05] MEDS: apixaban 5 mg Tablet PO (20:51)
[2023-01-06] VITALS (17 sets, daily range): BP systolic 97–134; BP diastolic 53–74; PULSE 86–110; RESP 16–24; TEMP 36.4–37; O2SAT 92–99; BMI 24.4
[2023-01-06] MEDS: levalbuterol 0.63 mg/3 mL Neb INHALATION ×4 (02:51→20:10)
[2023-01-06] MEDS: ipratropium 0.5 mg/2.5 mL Neb INHALATION ×4 (02:51→20:10)
[2023-01-06 05:15] LABS: Basophils % 0.7 %; Eosinophils # 0.4 10^3/uL (0.0-0.8); Hematocrit 29.4 % (37-53); Lymphocytes # 1.2 10^3/uL (0.8-4.8); Lymphocytes % 41.2 %; Mean Corpuscular HGB Conc 29.9 g/dL (30-55); Mean Corpuscular Hemoglobin 24.3 pg (27-33); Mean Corpuscular Volume 81.2 fl (82-101); Mean Platelet Volume 8.9 fL (7.4-10.4); Monocytes # 0.6 10^3/uL (0.2-0.9); Monocytes % 20.9 %; Neutrophils % 21.5 %; Nucleated Red Blood Cells % 0 %; Platelet Count 271 10^3/cmm (157-399); Red Blood Count 3.62 10^6/uL (3.85-5.65); Red Cell Distribution Width 16.2 % (12.1-15.1); White Blood Count 3.01 10^3/uL (3.29-11.43)
[2023-01-06 05:26] LABS: Neutrophils # 0.65 10^3/uL (1.8-7.7)
[2023-01-06 05:35] LABS: Alanine Aminotransferase 8 U/L (0-41); Albumin Level 2.7 g/dL (3.5-5.2); Alkaline Phosphatase 53 U/L (40-130); Anion Gap 12.1 (5-19); Aspartate Amino Transferase 16 U/L (0-40); Blood Urea Nitrogen 14 mg/dL (8-23); Calcium 8.3 mg/dL (8.5-10.5); Carbon Dioxide 24 mmol/L (22-29); Chloride 105 mmol/L (98-107); Globulin 3.5 g/dL (1.3-4.6); Glucose 102 mg/dL (65-115); Magnesium 1.9 mg/dL (1.7-2.3); Osmolality Calculated 285 mOsm/kg (285-295); Phosphorus 2.9 mg/dL (2.5-4.5); Potassium 4.1 mmol/L (3.5-5.1); Sodium 137 mmol/L (136-145); Total Bilirubin 0.5 mg/dL (0.15-1.2); Total Protein 6.2 g/dL (6.6-8.7)
[2023-01-06] MEDS: budesonide 0.5 mg/2 mL Neb INHALATION ×2 (07:36→20:10)
[2023-01-06] MEDS: apixaban 5 mg Tablet PO ×2 (08:50→21:43)
[2023-01-06] MEDS: famotidine 20 mg Tablet PO ×2 (08:50→17:55)
[2023-01-06] MEDS: dilTIAZem 30 mg Tablet PO ×3 (08:51→21:43)
--- NOTE | 2023-01-06 12:39 | P.PN_ITS ---
Subjective Subjective: No acute events overnight. Patient has remained hemodynamically stable and afebrile. Continues to remain on room air. Today morning examination states he has no new complaints. Blood work appreciated for a stable CBC still showing leukopenia, improvement in neutropenia, hemoglobin stable at 8.8, CMP showing mild PEYMAN with creatinine up to 1.3 today. Vitals/I&O/Wt Last Vital Signs Temp 97.8 F 01/06/23 04:00 Pulse 98 01/06/23 08:00 Resp 24 H 01/06/23 08:00 BP 127/61 01/06/23 08:00 Pulse Ox 99 01/06/23 08:00 O2 Del Method Room Air 01/06/23 08:00 01/05/23 01/06/23 01/06/23 22:59 06:59 14:59 Intake Total 1120 / 1360 360 / 360 Output Total 200 / 325 Balance 1120 / 1235 -200 / 1035 360 / 360 Weight last 48 hrs Weight 81.647 kg Weight 81.647 kg Physical Exam Narrative: General: No acute distress, AO x1-2, confusion, dehydrated, frail appearing HEENT: PERRLA, pupils bilaterally equal and reactive Chest: Normal vesicular breath sounds, no added sounds, equal good air entry bilaterally CVS: S1-S2 ir, no murmurs, no tachycardia, no gallops, no rubs Abdomen: Soft, nontender, no organomegaly, bowel sounds present Neuro: No focal deficits, no facial deformity, power 5/5 in all limbs Urinary Catheter Management: Shelton: Cath Placed During This Visit: yes, but has since been removed by the nurse Reason for Continuing Indwelling Catheter: Other Urinary Catheter Date of Insertion: 01/05/23 Urinary Catheter Time of Insertion: 00:31 Date Urinary Catheter Removed: 01/05/23 Time Urinary Catheter Discontinued: 09:30 Data 01/06/23 04:54 01/06/23 04:54 Micro: Microbiology 01/05/23 10:30 Gram Stain - Final Pleural Fluid 01/04/23 13:53 Blood Culture - Preliminary Blood NEGATIVE TO DATE 01/04/23 13:49 Blood Culture - Preliminary Blood NEGATIVE TO DATE A&P Assessment and plan (1) Atrial fibrillation, new onset: New onset. Appreciate normal urine drug screen, TSH. Continue with Cardizem 30 mg every 8 hourly. Will convert to Cardizem CD on discharge. Discussed with patient and DPOA regarding anticoagulation need for stroke prevention. He states he is not usually at a risk of fall and uses a walker very regularly and is agreeable for anticoagulation. Continue with Eliquis 5 mg twice daily. (2) Pleural effusion on right: Unknown etiology. 900 cc of fluid aspirated. Fluid studies consistent with exudative. Fluid pH of 8. Negative for empyema. We will follow-up cytology and cultures. For now hold off on antibiotics. (3) Rhinovirus infection: Most likely cause of patient's acute generalized weakness. Supportive treatment. Ipratropium, Xopenex every 6 hours, Pulmicort twice daily. Incentive spirometry. (4) Leukopenia: Most likely in setting of acute viral infection. Continue to monitor. No need for prophylactic antibiotics for now. (5) Neutropenia: Neutropenic precautions. Plan Shortness of breath: Resolved. Most likely in setting of baseline undiagnosed COPD getting exacerbated by rhinovirus infection. Postthoracentesis. Continue with nebulization treatment. PEYMAN: Most likely secondary to poor oral intake and postthoracentesis. Start gentle IV hydration with normal saline at 50 cc/h for 1 bag. Monitor BMP daily for now. Discharge plan: Patient agreeable to SNF placement for short-term for rehabitation. Case management working on possible transfer to SNF. Transfer to [facility] floor. Full code Cardiac diet Famotidine for PUD prophylaxis SCDs for DVT prophylaxis. Attestations Medical Necessity Statement*: Requires further hospitalization for management of acute kidney injury requiring IV fluids, further evaluation for right pleural effusion, new onset A-fib while safe discharge planning is sought Diagnoses Atrial fibrillation, new onset I48.91 Pleural effusion on right J90 Rhinovirus infection B34.8 Leukopenia D72.819 Neutropenia D70.9
[2023-01-06] MEDS: sodium chloride 0.9% 1,000 ML 50 ML IV (14:05)
--- NOTE | 2023-01-06 19:52 | PC.NURSE ---
Attempted to restart IV x 2 attempts without success. group work program director RN notified.
[2023-01-07] VITALS (15 sets, daily range): BP systolic 117–140; BP diastolic 61–88; PULSE 87–118; RESP 16–28; TEMP 36.6–37.4; O2SAT 93–96
[2023-01-07] MEDS: levalbuterol 0.63 mg/3 mL Neb INHALATION ×4 (02:54→21:12)
[2023-01-07] MEDS: ipratropium 0.5 mg/2.5 mL Neb INHALATION ×4 (02:54→21:12)
[2023-01-07] MEDS: budesonide 0.5 mg/2 mL Neb INHALATION ×2 (08:32→21:12)
--- NOTE | 2023-01-07 09:01 | PC.SOCIAL ---
Pg 2 IMM Explained to pt Pg 2 IMM. No questions voiced. Provided pt a copy. Initialed, dated, & timed a copy & placed in chart.
[2023-01-07 09:58] LABS: Alanine Aminotransferase 7 U/L (0-41); Albumin Level 2.9 g/dL (3.5-5.2); Alkaline Phosphatase 55 U/L (40-130); Anion Gap 14.3 (5-19); Aspartate Amino Transferase 15 U/L (0-40); Blood Urea Nitrogen 10 mg/dL (8-23); Calcium 8.2 mg/dL (8.5-10.5); Carbon Dioxide 24 mmol/L (22-29); Chloride 101 mmol/L (98-107); Globulin 3.6 g/dL (1.3-4.6); Glucose 121 mg/dL (65-115); Osmolality Calculated 280 mOsm/kg (285-295); Potassium 4.3 mmol/L (3.5-5.1); Sodium 135 mmol/L (136-145); Total Bilirubin 0.7 mg/dL (0.15-1.2); Total Protein 6.5 g/dL (6.6-8.7)
[2023-01-07] MEDS: famotidine 20 mg Tablet PO ×2 (10:49→17:38)
[2023-01-07] MEDS: apixaban 5 mg Tablet PO ×2 (10:50→20:07)
[2023-01-07] MEDS: dilTIAZem 30 mg Tablet PO ×3 (12:19→20:07)
[2023-01-07 12:48] LABS: Basophils % 0.6 %; Eosinophils # 0.4 10^3/uL (0.0-0.8); Eosinophils % 10.7 %; Hematocrit 30.4 % (37-53); Lymphocytes # 0.8 10^3/uL (0.8-4.8); Mean Corpuscular HGB Conc 30.6 g/dL (30-55); Mean Corpuscular Hemoglobin 24.9 pg (27-33); Mean Corpuscular Volume 81.5 fl (82-101); Mean Platelet Volume 9.1 fL (7.4-10.4); Monocytes # 0.8 10^3/uL (0.2-0.9); Monocytes % 22.8 %; Neutrophils # 1.37 10^3/uL (1.8-7.7); Neutrophils % 39.6 %; Nucleated Red Blood Cells % 0 %; Platelet Count 313 10^3/cmm (157-399); Red Blood Count 3.73 10^6/uL (3.85-5.65); Red Cell Distribution Width 16.6 % (12.1-15.1); White Blood Count 3.46 10^3/uL (3.29-11.43)
--- NOTE | 2023-01-07 15:20 | P.PN_ITS ---
Subjective Subjective: No new complains. Laying comfortably in bed , participating in PT. Awaiting placement. Blood work shows stable cbc, improvement in leukopenia and hb, resolution of peyman on cmp Vitals/I&O/Wt Last Vital Signs Temp 97.8 F 01/07/23 11:25 Pulse 94 01/07/23 14:00 Resp 19 H 01/07/23 13:39 BP 140/68 01/07/23 11:25 Pulse Ox 95 01/07/23 13:39 O2 Del Method Room Air 01/07/23 13:39 01/07/23 01/07/23 01/07/23 06:59 14:59 22:59 Intake Total 1340 / 1340 Output Total 200 / 450 Balance -200 / 150 1340 / 1340 Weight last 48 hrs Weight 81.647 kg Physical Exam Narrative: General: No acute distress, AO 2-3, frail appearing HEENT: PERRLA, pupils bilaterally equal and reactive Chest: Normal vesicular breath sounds, no added sounds, equal good air entry bilaterally CVS: S1-S2 ir, no murmurs, no tachycardia, no gallops, no rubs Abdomen: Soft, nontender, no organomegaly, bowel sounds present Neuro: No focal deficits, no facial deformity, power 5/5 in all limbs Urinary Catheter Management: Shelton: Cath Placed During This Visit: yes, but has since been removed by the nurse Reason for Continuing Indwelling Catheter: Other Urinary Catheter Date of Insertion: 01/05/23 Urinary Catheter Time of Insertion: 00:31 Date Urinary Catheter Removed: 01/05/23 Time Urinary Catheter Discontinued: 09:30 Data 01/07/23 09:20 01/07/23 09:20 Micro: Microbiology 01/05/23 10:30 Gram Stain - Final Pleural Fluid Body Fluid Culture - Preliminary 01/05/23 05:40 Sputum Culture - Preliminary Sputum - Expectorated Sputum A&P Assessment and plan (1) Atrial fibrillation, new onset: New onset. Appreciate normal urine drug screen, TSH. Increase Cardizem 30 mg every 6 hourly. Will convert to Cardizem CD on discharge. Discussed with patient and DPOA regarding anticoagulation need for stroke prevention. He states he is not usually at a risk of fall and uses a walker very regularly and is agreeable for anticoagulation. Continue with Eliquis 5 mg twice daily. (2) Pleural effusion on right: Unknown etiology. 900 cc of fluid aspirated. Fluid studies consistent with exudative. Fluid pH of 8. Negative for empyema. We will follow-up cytology and cultures. For now hold off on antibiotics. (3) Rhinovirus infection: Most likely cause of patient's acute generalized weakness. Supportive treatment. Ipratropium, Xopenex every 6 hours, Pulmicort twice daily. Incentive spirometry. (4) Leukopenia: Resolving. Most likely in setting of acute viral infection. Continue to monitor. No need for prophylactic antibiotics for now. (5) Neutropenia: Neutropenic precautions. (6) Physical deconditioning: Plan Shortness of breath: Resolved. Most likely in setting of baseline undiagnosed COPD getting exacerbated by rhinovirus infection. Postthoracentesis. Continue with nebulization treatment. PEYMAN: Resolved. Most likely secondary to poor oral intake and postthoracentesis. Stop fluids. Encourage oral intake Monitor BMP daily for now. Discharge plan: Patient agreeable to SNF placement for short-term for rehabitation. Case management working on possible transfer to SNF. Transfer to [facility] floor. Full code Cardiac diet, protein supplement Famotidine for PUD prophylaxis SCDs for DVT prophylaxis. Attestations Medical Necessity Statement*: Requires further hospitalization for management of physical deconditioning in setting of rhinovirus infection, new onset A-fib while safe discharge planning to SNF is soft. Coding Level of Care Code 49399 Moderate MDM includes number and complexity of problems actively addressed during encounter, amount and/or complexity of data reviewed/ordered and described risk of complication, morbidity or mortality of management as do cumented Diagnoses Atrial fibrillation, new onset I48.91 Pleural effusion on right J90 Rhinovirus infection B34.8 Leukopenia D72.819 Neutropenia D70.9 Physical deconditioning R53.81
[2023-01-08] VITALS: BP 118/51; PULSE 96; RESP 21; TEMP 37.8; O2SAT 93
[2023-01-08 04:00] VITALS: BP 138/70; PULSE 87; RESP 23; TEMP 37.1; O2SAT 95
[2023-01-08 04:18] LABS: Basophils % 0.9 %; Eosinophils # 0.4 10^3/uL (0.0-0.8); Eosinophils % 12.7 %; Hematocrit 29.5 % (37-53); Lymphocytes # 0.9 10^3/uL (0.8-4.8); Lymphocytes % 28.7 %; Mean Corpuscular HGB Conc 30.2 g/dL (30-55); Mean Corpuscular Hemoglobin 24.5 pg (27-33); Monocytes # 0.7 10^3/uL (0.2-0.9); Monocytes % 20.7 %; Neutrophils % 33.9 %; Nucleated Red Blood Cells % 0 %; Platelet Count 290 10^3/cmm (157-399); Red Blood Count 3.64 10^6/uL (3.85-5.65); Red Cell Distribution Width 16.5 % (12.1-15.1); White Blood Count 3.24 10^3/uL (3.29-11.43)
[2023-01-08 04:39] LABS: Alanine Aminotransferase 7 U/L (0-41); Albumin Level 2.7 g/dL (3.5-5.2); Alkaline Phosphatase 53 U/L (40-130); Aspartate Amino Transferase 17 U/L (0-40); Blood Urea Nitrogen 9 mg/dL (8-23); Calcium 8.4 mg/dL (8.5-10.5); Carbon Dioxide 22 mmol/L (22-29); Chloride 101 mmol/L (98-107); Globulin 3.6 g/dL (1.3-4.6); Glucose 115 mg/dL (65-115); Osmolality Calculated 278 mOsm/kg (285-295); Sodium 134 mmol/L (136-145); Total Bilirubin 0.8 mg/dL (0.15-1.2); Total Protein 6.3 g/dL (6.6-8.7)
[2023-01-08 05:32] VITALS: PULSE 85
[2023-01-08] MEDS: apixaban 5 mg Tablet PO (07:49)
[2023-01-08] MEDS: dilTIAZem 30 mg Tablet PO (07:50)
[2023-01-08] MEDS: famotidine 20 mg Tablet PO (07:50)
[2023-01-08 08:00] VITALS: BP 159/88; PULSE 100; RESP 21; TEMP 36.8; O2SAT 98
[2023-01-08] MEDS: ipratropium 0.5 mg/2.5 mL Neb INHALATION (08:30)
[2023-01-08] MEDS: budesonide 0.5 mg/2 mL Neb INHALATION (08:31)
[2023-01-08] MEDS: levalbuterol 0.63 mg/3 mL Neb INHALATION (08:31)
[2023-01-08 08:34] VITALS: PULSE 95; RESP 17; O2SAT 96
--- NOTE | 2023-01-08 09:10 | PC.NURSE ---
Spoke with Caor with [facility] and gave her update on pt VS, meds, HR and rhythm. She was curious if he had a ride / family that could take him to them as well.
--- NOTE | 2023-01-08 09:36 | P.DS_ITS ---
Discharge Providers Date of Admission: 01/04/23 19:04 Date of Discharge: January 08, 2023 Attending Provider at Admission: Hector Flanagan MD Attending Provider at Discharge: Hector Flanagan MD Primary Care Provider: Olu Rios Jr, MD Diagnoses at Discharge Discharge Diagnosis (1) Atrial fibrillation, new onset: Status: Acute (2) Pleural effusion on right: Status: Acute (3) Rhinovirus infection: Status: Acute (4) Leukopenia: Status: Acute (5) Neutropenia: Status: Acute (6) Physical deconditioning: Status: Acute (7) Aortic root dilatation: Status: Acute (8) Moderate aortic regurgitation with left ventricular dilation by prior echocardiogram: Status: Acute (9) Thoracic ascending aortic aneurysm: Status: Acute Permanent problem details: 4.6 cm with CTA?01/04 Reason for Visit Reason for Visit: WEAKNESS Hospital Course Hospital Course Alexx Barron is a 82 year old male with no segment past medical, resident of assisted living was brought in by EMS today because of generalized weakness which has been getting worse for last 3 to 4 days along with persistent cough.? In the ER he was found to have atrial fibrillation and right-sided pleural effusion hence medical team was consulted for further evaluation. Examination patient laying comfortably in bed, AO x1-2, slightly confused which as per his sister is usual for him, states he walks around at home with a walker and usually takes care of his ADLs but has been having more cough and weakness for last few days.? He denies any chest pain, palpitation, nausea, vomiting, subjective fever fever, diarrhea, dysuria, loss of weight. Patient was admitted to the hospital for further evaluation and management of new onset A-fib. He was started on rate controlling medications. He was also found to be positive for enterovirus. He was also found to have leukopenia with neutropenia along with mild anemia during hospitalization most likely in setting of viral prodrome which has been improving. After detailed discussion about anticoagulation for stroke prevention patient agreed for to be put on the medication. On admission patient was also found to have a significant right- sided pleural effusion for which he underwent thoracentesis 900 cc of fluid was drained. Fluid studies are consistent with transudative fluid collection without any signs for empyema. Cultures from pleural fluid are so far negative. Echocardiogram was done during hospitalization which is consistent with mild to moderate aortic regurgitation along with dilated aortic root at 41 mm and ascending aortic dilatation at 48 mm anteroposteriorly. He is advised close follow-up biannually with CTA. She has been discharged home he was found to be significantly deconditioned. Safe discharge plan was discussed in detail with patient and patient's family member at bedside. He was agreeable for short-term SNF placement. He has been discharged in hemodynamically stable condition to SNF for further rehabitation. He is to take Cardizem 180 mg daily along with Eliquis 5 mg twice daily. Physical Exam Narrative: General: No acute distress, AO 2-3, frail appearing HEENT: PERRLA, pupils bilaterally equal and reactive Chest: Normal vesicular breath sounds, no added sounds, equal good air entry bilaterally CVS: S1-S2 ir, no murmurs, no tachycardia, no gallops, no rubs Abdomen: Soft, nontender, no organomegaly, bowel sounds present Neuro: No focal deficits, no facial deformity, power 5/5 in all limbs Urinary Catheter Management: Shelton: Cath Placed During This Visit: yes, but has since been removed by the nurse Reason for Continuing Indwelling Catheter: Other Urinary Catheter Date of Insertion: 01/05/23 Urinary Catheter Time of Insertion: 00:31 Date Urinary Catheter Removed: 01/05/23 Time Urinary Catheter Discontinued: 09:30 Discharge Data Studies Completed and Pending Completed Studies During Hospitalization Category Date Time Status CT angio chest PE protcl [id number] Stat Cat Scan 01/04/23 14:55 Completed XR chest 1V portable [id number] Stat Exams 01/04/23 13:12 Completed XR chest 1V portable [id number] Stat Exams 01/05/23 10:33 Completed CV. echo complete* [id number] Routine Ultrasound 01/04/23 18:06 Completed US thoracentesis [id number] Routine Ultrasound 01/05/23 19:04 Completed Pending at discharge Category Date Time Status Blood Culture Stat Lab 01/04/23 13:49 Results Body Fluid Culture & GS Routine Lab 01/05/23 10:30 Results Mycobacteria, Culture w/Fluor Routine Lab 01/05/23 10:30 Received Sputum Culture Stat Lab 01/04/23 05:41 Results Cytology [PTH] Routine Pth 01/05/23 10:28 Received Laboratory Results WBC 3.24 10^3/uL (3.29-11.43) L 01/08/23 03:45 RBC 3.64 10^6/uL (3.85-5.65) L 01/08/23 03:45 Hgb 8.90 g/dL (11.27-16.99) L 01/08/23 03:45 Hct 29.5 % (37-53) L 01/08/23 03:45 MCV 81.0 fl (82-101) L 01/08/23 03:45 MCH 24.5 pg (27-33) L 01/08/23 03:45 MCHC 30.2 g/dL (30-55) 01/08/23 03:45 RDW 16.5 % (12.1-15.1) H 01/08/23 03:45 Plt Count 290 10^3/cmm (157-399) 01/08/23 03:45 MPV 9.0 fL (7.4-10.4) 01/08/23 03:45 Neut % (Auto) 33.9 % 01/08/23 03:45 Lymph % (Auto) 28.7 % 01/08/23 03:45 [place] % (Auto) 20.7 % 01/08/23 03:45 Eos % (Auto) 12.7 % 01/08/23 03:45 Baso % (Auto) 0.9 % 01/08/23 03:45 Neut # (Auto) 1.10 10^3/uL (1.8-7.7) L 01/08/23 03:45 Lymph # (Auto) 0.9 10^3/uL (0.8-4.8) 01/08/23 03:45 [place] # (Auto) 0.7 10^3/uL (0.2-0.9) 01/08/23 03:45 Eos # (Auto) 0.4 10^3/uL (0.0-0.8) 01/08/23 03:45 Baso # (Auto) 0.0 10^3/uL (0.0-0.1) 01/08/23 03:45 Nucleated RBC % (auto) 0 % 01/08/23 03:45 Nucleated RBCs # 0.0 /100WBC 01/08/23 03:45 PT 14.90 SECONDS (12.1-14.9) 01/05/23 04:46 INR 1.13 (0.8-1.2) 01/05/23 04:46 Sodium 134 mmol/L (136-145) L 01/08/23 03:45 Potassium 4.0 mmol/L (3.5-5.1) 01/08/23 03:45 Chloride 101 mmol/L (98-107) 01/08/23 03:45 Carbon Dioxide 22 mmol/L (22-29) 01/08/23 03:45 Anion Gap 15.0 (5-19) 01/08/23 03:45 BUN 9 mg/dL (8-23) 01/08/23 03:45 Creatinine 1.2 mg/dL (0.7-1.2) 01/08/23 03:45 GFR Calculation Not Reportable 01/08/23 03:45 Glucose 115 mg/dL (65-115) 01/08/23 03:45 Estimat Average Glucose 97 01/05/23 04:46 Hemoglobin A1c 5.0 % (4.0-6.0) 01/05/23 04:46 Calculated Osmolality 278 mOsm/kg (285-295) L 01/08/23 03:45 Calcium 8.4 mg/dL (8.5-10.5) L 01/08/23 03:45 Phosphorus 2.9 mg/dL (2.5-4.5) 01/06/23 04:54 Magnesium 1.9 mg/dL (1.7-2.3) 01/06/23 04:54 Iron 21 ug/dL (59-158) L 01/04/23 13:28 TIBC 149 mcg/dl 01/04/23 13:28 % Saturation 14.0 % (20-50) L 01/04/23 13:28 Unsat Iron Binding 128 ug/dL (112-347) 01/04/23 13:28 Total Bilirubin 0.8 mg/dL (0.15-1.2) 01/08/23 03:45 AST 17 U/L (0-40) 01/08/23 03:45 ALT 7 U/L (0-41) 01/08/23 03:45 Alkaline Phosphatase 53 U/L (40-130) 01/08/23 03:45 Lactate Dehydrogenase 165 U/L (135-225) 01/05/23 04:46 Total Protein 6.3 g/dL (6.6-8.7) L 01/08/23 03:45 Albumin 2.7 g/dL (3.5-5.2) L 01/08/23 03:45 Globulin 3.6 g/dL (1.3-4.6) 01/08/23 03:45 Triglycerides 50 mg/dL (0-150) 01/05/23 04:46 Cholesterol 92 mg/dL (0-200) 01/05/23 04:46 LDL Cholesterol, Calc 46 mg/dL (50-129) L 01/05/23 04:46 HDL Cholesterol 36 mg/dL (60-100) L 01/05/23 04:46 LDL/HDL Ratio 1.28 RATIO (0.00-3.22) 01/05/23 04:46 Cholesterol/HDL Ratio 2.56 mg/dL (1.0-5.00) 01/05/23 04:46 Vitamin B12 > 2000 pg/mL (232-1245) H 01/04/23 13:28 Folate 5.4 ng/mL (4.5-32.2) 01/05/23 04:46 Procalcitonin 0.23 ng/mL (0-0.5) 01/04/23 13:28 TSH 2.70 uIU/mL (0.27-4.20) 01/04/23 13:28 Urine Color Yellow (Yellow) 01/05/23 00:30 Urine Appearance Sl hazy (CLEAR) A 01/05/23 00:30 Urine pH 5 (5-7) 01/05/23 00:30 Ur Specific Galliano 1.015 (1.005-1.030) 01/05/23 00:30 Urine Protein 1+ (Negative) H 01/05/23 00:30 Urine Glucose (UA) Norm (Normal) 01/05/23 00:30 Urine Ketones Negative (Negative) 01/05/23 00:30 Urine Blood Neg (Negative) 01/05/23 00:30 Urine Nitrate Negative (Negative) 01/05/23 00:30 Urine Bilirubin 1+ (Negative) H 01/05/23 00:30 Urine Urobilinogen 1 mg/dL (Negative) H 01/05/23 00:30 Ur Leukocyte Esterase Negative (Negative) 01/05/23 00:30 Urine RBC None /hpf (0-2) 01/05/23 00:30 Urine WBC None /hpf (0-5) 01/05/23 00:30 Ur Squamous Epith Cells None /hpf (0-5) 01/05/23 00:30 Amorphous Sediment Not Reportable 01/05/23 00:30 Urine Bacteria Trace /hpf (NONE) 01/05/23 00:30 Urine Mucus 2+ /hpf 01/05/23 00:30 Fluid Color Mariah 01/05/23 10:30 Fluid Appearance Cloudy 01/05/23 10:30 Fluid WBC 5184 /uL 01/05/23 10:30 Fluid RBC 15.000 10^3/uL 01/05/23 10:30 Fluid Hematocrit 0.1 % 01/05/23 10:30 Fld Polynuclear WBCs # 0.939 01/05/23 10:30 Fld Polynuclear WBCs % 18.100 % 01/05/23 10:30 Fl Mononucl WBCs #(Auto) 4.245 01/05/23 10:30 Fl Mononuclear % Auto 81.900 % 01/05/23 10:30 Fld Crystal Laterality Right 01/05/23 10:30 Fluid Albumin 2.4 g/dL 01/05/23 10:30 Fluid Creatinine 1.03 (0.7-1.2) 01/05/23 10:30 Pleural pH 8.00 (6.5-7.5) H 01/05/23 10:30 Pleural Total Protein 4.7 g/dL 01/05/23 10:30 Pleural LDH 326 U/L 01/05/23 10:30 Pleural Glucose 84.0 mg/dL 01/05/23 10:30 Pleural Amylase 75.0 U/L 01/05/23 10:30 Pleural Triglycerides 24 mg/dL 01/05/23 10:30 Nasal Influ A H1 2009 PCR Not detected (NOT DETECT) 01/04/23 18:41 Urine Opiates Screen Negative ng/mL (Negative) 01/04/23 14:30 Ur Barbiturates Screen Negative ng/mL (Negative) 01/04/23 14:30 Ur Phencyclidine Scrn Negative ng/mL (Negative) 01/04/23 14:30 Ur Amphetamines Screen Negative ng/mL (Negative) 01/04/23 14:30 U Benzodiazepines Scrn Negative ng/mL (Negative) 01/04/23 14:30 Urine Cocaine Screen Negative ng/mL (Negative) 01/04/23 14:30 U Marijuana (THC) Screen Negative ng/mL (Negative) 01/04/23 14:30 Adenovirus (PCR) Not detected (NOT DETECT) 01/04/23 18:41 C. pneumoniae DNA (PCR) Not detected (NOT DETECT) 01/04/23 18:41 Coronavirus 229E (PCR) Not detected (NOT DETECT) 01/04/23 18:41 Human Metapneumovir PCR Not detected (NOT DETECT) 01/04/23 18:41 Influenza A (H1) PCR Not detected (NOT DETECT) 01/04/23 18:41 Influenza A (H3) PCR Not detected (NOT DETECT) 01/04/23 18:41 Influenza Type A (PCR) Not detected (NOT DETECT) 01/04/23 18:41 Influenza Type B (PCR) Not detected (NOT DETECT) 01/04/23 18:41 M. pneumoniae (PCR) Not detected (NOT DETECT) 01/04/23 18:41 Parainfluenza 1 (PCR) Not detected (NOT DETECT) 01/04/23 18:41 Parainfluenza 2 (PCR) Not detected (NOT DETECT) 01/04/23 18:41 Parainfluenza 3 (PCR) Not detected (NOT DETECT) 01/04/23 18:41 Parainfluenza 4 (PCR) Not detected (NOT DETECT) 01/04/23 18:41 RSV Type A (PCR) Not detected (NOT DETECT) 01/04/23 18:41 RSV Type B (PCR) Not detected (NOT DETECT) 01/04/23 18:41 Entero/Rhino (PCR) Detected (NOT DETECT) A 01/04/23 18:41 SARS-CoV-2 (PCR) Not detected (NOT DETECT) 01/04/23 18:41 Vitals Last Vital Signs Temp 98.2 F 01/08/23 08:00 Pulse 95 01/08/23 08:34 Resp 17 01/08/23 08:34 BP 159/88 01/08/23 08:00 Pulse Ox 96 01/08/23 08:34 O2 Del Method Room Air 01/08/23 08:34 FiO2 21 01/07/23 22:52 Discharge Plan Discharge Patient Disposition: Home Condition: Stable Prescriptions: New Eliquis 5 mg Tablet 5 mg PO BID@0900,2100 Qty: 60 0RF Anoro Ellipta 62.5-25 mcg/actuation blister with device 1 inh inhalation DAILY Qty: 60 0RF diltiazem HCl [Cardizem CD] 180 mg capsule,extended release 24hr 180 mg PO Q24H Qty: 30 0RF Continued Otc Vits (Pt Not Sure Of Names See Rx Instructions .ROUTE .COMPLEX Rx Instructions: pt states he takes otc vitamins but is unsure of the names of the vitamins Discontinued Aspir-81 81 mg Tablet,Delayed Release (Dr/Ec) 81 mg PO DAILY PRN (Reason: chest pains) Discharge Orders: Discharge Order (Routine); Ordered 01/08/23 Ordered By: Hector Flanagan Referrals: Olu Rios Jr, MD [Primary Care Provider] - 7-10 days Discharge Diet: Regular Discharge Activity: Resume usual activity and Increase activity as tolerated Patient Instructions: Diltiazem (By mouth) (Cardizem, Cardizem CD, Cardizem LA, Cardizem SR), Apixaban (By mouth) (Eliquis), Umeclidinium/Vilanterol (By breathing) (Anoro Ellipta), A-fib (Atrial Fibrillation) (DC), Opioid Safety Activity Restrictions/Additional Instructions: Take Cardizem 180 mg daily. Eliquis 5 mg twice daily with a blood thinner. Continue Inhalation treatment daily. Should have CTA done biannually for further evaluation and monitoring of thoracic aortic artery aneurysm Discharge Attestations Time Spent in Discharge Care*: greater than 30 min Specific Discharge Activities: educating patient, educating and/or supporting family/caregiver, discussing with pcp/other providers, discussing with protective services case worker/social workers/dc planners, documenting/other paperwork and evaluating patient/reviewing data Status at Discharge: Cognitive status at discharge: mildly impaired cognition , Behavioral status at discharge: cooperative , Functional status at discharge: uses cane/walker , Overall status at discharge: patient is progressing back to baseline Quality Metrics Clinical Quality Measures [ No reported AMI, CVA or VTE this stay] Coding Level of Care Code 41602 Total time (in minutes) for Discharge: 50 Diagnoses Atrial fibrillation, new onset I48.91 Pleural effusion on right J90 Rhinovirus infection B34.8 Leukopenia D72.819 Neutropenia D70.9 Physical deconditioning R53.81 Aortic root dilatation I77.810 Moderate aortic regurgitation with left ventricular dilation by prior echocardiogram I35.1; I51.7 Thoracic ascending aortic aneurysm I71.21
[2023-01-08 13:00] VITALS: PULSE 95; RESP 17; O2SAT 96
== END 2023-01-08 11:45 | disposition home or self-care (01) ==
LOC: ER 16:59 → ICU 18:36 → CSU 01-05 13:35
PROVIDERS: Admitting Provider Student in an Organized Health Care Education/Training Program; Emergency Provider Family Medicine; PCP Family Medicine; Visit Provider Student in an Organized Health Care Education/Training Program
DX: I48.91 Unspecified atrial fibrillation (principal); J90 Pleural effusion, not elsewhere classified; B34.8 Other viral infections of unspecified site; D72.819 Decreased white blood cell count, unspecified; R53.81 Other malaise; I35.1 Nonrheumatic aortic (valve) insufficiency; I51.7 Cardiomegaly; I71.21 Aneurysm of the ascending aorta, without rupture; R06.02 Shortness of breath; N17.9 Acute kidney failure, unspecified; Z79.82 Long term (current) use of aspirin; Z87.891 Personal history of nicotine dependence; I45.10 Unspecified right bundle-branch block
CPT/HCPCS: 32555; 36415; 51702; 71045; 71275; 80053; 80061; 80306; 80503; 81001; 82042; 82150; 82570; 82607; 82746; 82945; 83036; 83540; 83550; 83615; 83735; 83986; 84100; 84145; 84157; 84443; 84478; 85014; 85025; 85610; 87015; 87040; 87070; 87075; 87116; 87205; 87206; 87486; 87581; 87633; 87801; 88112; 88305; 89050; 93005; 93306; 94640; 94664; 97110; 97116; 97161; 97166; 97530; 97535; 99285; A9270; G0378; J7030; J7614; J7626; J7644; Q9967

== ENCOUNTER 2023-04-22 11:18 | Emergency (ER) | payer OTHER, SELFPAY ==
[2023-04-22 11:21] VITALS: BP 98/60; PULSE 86; RESP 18; TEMP 36.8; O2SAT 100; BMI 20.3
--- NOTE | 2023-04-22 11:57 | XR_ITS ---
WS: [id number] Exam: XR KUB [id number] Date/Time of Exam: 04/22/2023 12:06 PM Reason For Exam: feeding tube KUB is obtained for confirmation of feeding tube location. Contrast injection through an indwelling gastrotomy tube shows the tube is present in the antrum of t he stomach. There is contrast opacification of part of the stomach and duodenal C-loop. No extravasat ion of contrast outside the confines of the GI tract is noted. There are no acute abdominal findings otherwise. IMPRESSION: 1. Feeding tube in place in the antrum of the stomach. 2. No extravasation was noted. No acute process in the abdomen.
--- NOTE | 2023-04-22 11:57 | W.ED.ABDPA2 ---
HPI - Abdominal Pain General: Chief Complaint: Abdominal Pain Stated Complaint: gtube issues Time Seen by Provider: 04/22/23 11:19 Source: patient and EMS Limitations: no limitations History of Present Illness: This patient was transported the emergency department from [facility] because of concerns about abdominal pain. The patient has had a longstanding feeding tube which sounds like a gastrostomy tube and apparently it became dislodged this morning. The alf staff replace it but states patient started complaining of abdominal pain and therefore sent him here for evaluation. The patient states that it does not bother him too much now but does feel like he has to have a bowel movement. He denies any other constitutional complaints. Associated Symptoms: Denies chills, diarrhea, fever(s), nausea, syncope and vomiting Review of Systems Const: Denies: fever(s) or chills ENMT: Denies: throat pain, odynophagia, nasal discharge or nasal congestion Card: Denies: chest pain, palpitations, irregular heart rhythm, syncope or pre-syncope Resp: Denies: dyspnea, productive cough or non-productive cough GI: Denies: nausea, vomiting or diarrhea Musc: Denies: neck pain, back pain, extremity pain or extremity swelling Skin/Breast: Denies: rash Neuro: Denies: headache(s), numbness in extremities or weakness in extremities Psych: Denies: anxiety PFSH ED PFSH: Medical History Thoracic ascending aortic aneurysm 4.6 cm with CTA?01/04 No pertinent past medical history Surgical History No pertinent past surgical history Social History Smoking and tobacco/nicotine status: former use of tobacco/nicotine Alcohol intake: never Substance/Drug Use: never Caregiver/support person: Yes Housing: Assisted Living Facility Marital status: Current occupational status: retired Physical Exam Narrative: EXAM NARRATIVE: Patient is alert and appears to be in no acute distress. Const: COMMON NORMALS: no acute distress and patient oriented x3 GENERAL APPEARANCE: cooperative and comfortable ORIENTATION/CONSCIOUSNESS: Yes awake, Yes oriented to person and Yes oriented to place HENMT: COMMON NORMALS: normocephalic, Normal nasal mucous membranes and turbinates present and moist oral mucous membranes HEAD & SCALP: normocephalic NOSE: Normal nasal mucous membranes and turbinates present Eye: COMMON NORMALS: Equal, round and reactive pupils present, EOMs intact bilaterally and conjunctivae normal CONJUNCTIVA: Yes conjunctivae normal PUPIL: Yes Equal, round and reactive pupils present Neck/C-Spine: COMMON NORMALS: full ROM, no lymphadenopathy, supple and no JVD Chest: COMMONS NORMALS: normal inspection of the chest Resp: COMMON NORMALS: normal respiratory effort, No retractions, No use of accessory muscles and clear to auscultation bilaterally AUSCULTATION: clear to auscultation bilaterally Cardio: COMMON NORMALS: no JVD, regular rate, regular rhythm, No murmurs present (Cardio) and Peripheral pulses 2+ throughout RATE: regular rate RHYTHM: regular rhythm PERIPHERAL PULSES: Peripheral pulses 2+ throughout GI: COMMON NORMALS: Soft to palpation and non-tender PALPATION: Yes Soft to palpation OTHER: Abdomen is notable for a feeding tube placed in the left upper quadrant just left of the midline. No drainage no erythema noted. No tenderness to palpation of his abdomen. No rebound no guarding. : COMMON NORMALS: Yes no CVA tenderness BLADDER/KIDNEY EXAM: Yes no CVA tenderness Back/Pelvis: COMMON NORMALS: no CVA tenderness, thoracic and lumbar spine normal to inspection and no thoracic nor lumbar tenderness Extremity: COMMON NORMALS: normal to inspection, full ROM, capillary refill normal and no calf tenderness Neuro: COMMON NORMALS: patient oriented x3, moves all extremities, no focal motor deficits and no sensory deficits noted SENSORIUM/ORIENTATION: Yes oriented to person and Yes oriented to place Skin: COMMON NORMALS: no rashes or lesions noted and no wounds GENERAL SKIN EXAM: no rashes or lesions noted Course Reevaluation(s): Reevaluation #1: After Shelton catheter which was in his G-tube stoma was confirmed to be appropriately placed with no extravasation of the Gastrografin it was removed and a 20 Turkmen feeding tube was placed without difficulty. A mL of water was infused into the balloon. Will recheck its placement and if it is suitable he will be discharged home. Should note that the patient had a bowel movement and has no abdominal discomfort at all now. Time: 13:43 Vital Signs: Vital signs: Vital Signs Temperature 98.3 F 04/22/23 11:21 Pulse Rate 91 01/18/24 12:30 Respiratory Rate 18 04/22/23 11:21 Blood Pressure 107/55 04/22/23 12:30 Pulse Oximetry 100 04/22/23 12:30 Oxygen Delivery Me thod Room Air 04/22/23 12:30 MDM - Abdominal Pain Medical Decision Making This patient was referred to the emergency department because of feeding tube concerns. Patient had a longstanding feeding tube that apparently got dislodged in a long-term care facility. It was replaced with a Shelton at the long-term care facility but the patient allegedly had some abdominal complaints after this procedure and therefore was referred to the emergency department. Patient was quite comfortable but stated he had to have a bowel movement. His abdominal examination of the soft and nontender with no peritoneal signs. His feeding tube site was intact with a Shelton catheter in the stoma. Gastrografin study revealed good placement of the Shelton catheter which was then removed and replaced with a 20 Turkmen feeding tube which also was firmed good placement by a repeat Gastrografin study. The patient did have a bowel movement while in the emergency department actually stated he had no symptoms. Patient is stable to be discharged back to the long-term care facility without any evidence at this time of an ongoing emergency medical condition. XR interpretation done by ED provider, pending radiology final review Discharge Plan Discharge Patient Disposition: Home Clinical Impression: Complaint associated with gastric tube, Encounter for feeding tube placement Condition: Stable Prescriptions: No Action senna 8.6 mg Tablet 8.6 mg PO DAILY PRN (Reason: Constipation) lorazepam 2 mg/mL Solution 2 mg SUBLINGUAL DAILY PRN (Reason: Anxiety) Zofran 4 mg Tablet 4 mg PO Q6H PRN (Reason: Indigestion) Milk of Magnesia 400 mg/5 mL Suspension 30 ml PO DAILY PRN (Reason: Constipation) morphine 20 mg/5 mL (4 mg/mL) Solution 10 mg PO Q2H PRN (Reason: Pain) morphine 20 mg/5 mL (4 mg/mL) Solution 5 mg PO Q2H PRN (Reason: Pain) bisacodyl 10 mg Suppository 10 mg ND DAILY PRN (Reason: Constipation) Fleet Enema 19-7 gram/118 mL Enema 118 ml ND DAILY PRN (Reason: Constipation) Miralax 17 gram/dose Powder 4 g PO DAILY PRN (Reason: Constipation) ascorbic acid (vitamin C) 500 mg/5 mL Syrup 50 mg PO DAILY Rob 7-7-1.5 gram Powder In Packet 1 ea PO DAILY Discharge Orders: Discharge ED (Routine); Ordered 04/22/23 Ordered By: Blaise Samayoa Referrals: Olu Rios Jr, MD [Primary Care Provider] - Discharge Diet: Usual diet Discharge Activity: Increase activity as tolerated Patient Instructions: Opioid Safety, Pain Management Activity Restrictions/Additional Instructions: Patient had his feeding tube replaced while in the emergency department and was evaluated radiographically and found to be in good position. You may resume his tube feedings and follow-up as usual. His clinical examination was nonconcerning for any abdominal process at this time. Coding Level of Care Code ED Horticulture/Floriculture Teacher for Megha Shah
[2023-04-22 12:30] VITALS: BP 107/55; PULSE 91; O2SAT 100
--- NOTE | 2023-04-22 13:44 | XR_ITS ---
WS: [id number] Exam: XR KUB portable [id number] Date/Time of Exam: 04/22/2023 1:45 PM Reason For Exam: feeding tube patency and placement KUB is performed to establish gastrotomy tube patency. Injection of contrast through an indwelling gastrotomy tube confirms that the tube is in the fundus o f the stomach. There was no extravasation outside the GI tract. No bowel obstruction or free air. The re is some contrast also noted in the large bowel. IMPRESSION: 1. Gastrotomy tube noted in the fundus of the stomach. No extravasation or other complication identif ied.
--- NOTE | 2023-04-22 14:10 | PC.NURSE ---
20 GAUGE AVANOS G-TUBE PLACED BY DR. ROLON.
--- NOTE | 2023-04-22 14:36 | PC.NURSE ---
PATIENT REPORT CALLED BACK TO [facility]. PATIENT CURRENTLY WAITING ON TRANSPORTATION BACK TO FACILITY.
== END 2023-04-22 15:28 | disposition home or self-care (01) ==
PROVIDERS: Emergency Provider Emergency Medicine; PCP Family Medicine
DX: Z43.1 Encounter for attention to gastrostomy (principal)
CPT/HCPCS: 74018; 99283; Q9963